=== PATIENT | male | born 1950 | race Caucasian/White ===

== ENCOUNTER → 2016-07-12 | Outpatient (CLI) | payer MEDICARE, BC, MEDICAID ==
[~2016-07-12] MED LIST: AMOXICILLIN875 MG PO; APRESOLINE 25MG25 MG PO; ATIVAN 1MG T1 MG/TAB PO; BYSTOLIC10 MG PO; CALCIUM 600-D 61 TAB PO; CELEXA10 MG PO; CEPHALEXIN500 M1 PO; COLACE 100100 MG/CAP PO; CORTEF 20MG TAB20 MG PO; DILAUDID 2MG TAB2 MG PO; ECHINACEA PURPU80 MG PO; FENTANYL 25 MCG TD; FENTANYL TD; FLEXERIL 1010 MG/TAB PO; FLOMAX 0.40.4 MG/CAP PO; KLOR-CON M2020 MEQ PO; LASIX 20MG TABL20 MG PO; MAALOX MAX + ANT1 ML PO; MEGA MULTIVITAM1 TAB PO; MIRALAX PA17 GM/Dose PO; NORCO 325 MG-51 TAB PO; NORVASC 10MG10 MG PO; PERCOCET 325 MG1 TA2 PO; PRAVACHOL10 MG PO; PRAVACHOL80 MG PO; REGLAN 10MG10 MG/TAB PO; STOOL SOFTENER100 M2 PO; SYNTHROID 0.0.025 MG PO; TYLENOL 500MG500 MG PO; ULTRAM 50MG TAB50 MG PO; UROXATRAL10 M1 PO; VASOTEC20 MG PO; VENTOLIN0.09 MG IH; XTANDI40 MG PO; ZESTRIL 5MG5 MG PO; ZITHROMAX TRI-500 MG PO; ZOFRAN 4MG T4 MG/TAB PO; [UNRECOGNIZED DRUG - OTHER] PO
== END ==
LOC: COL.RAD 09:05
DX: C61 Malignant neoplasm of prostate (principal); C79.51 Secondary malignant neoplasm of bone; R91.1 Solitary pulmonary nodule; K57.30 Diverticulosis of large intestine without perforation or abscess without bleeding; K40.90 Unilateral inguinal hernia, without obstruction or gangrene, not specified as recurrent
CPT/HCPCS: A9503

== ENCOUNTER → 2016-10-14 | Outpatient (CLI) | payer MEDICARE, BC, MEDICAID | LOC: COL.RAD 08:33 | DX: C61 Malignant neoplasm of prostate (principal); C79.51 Secondary malignant neoplasm of bone; R91.8 Other nonspecific abnormal finding of lung field; R59.0 Localized enlarged lymph nodes; K76.89 Other specified diseases of liver; N28.1 Cyst of kidney, acquired; K40.90 Unilateral inguinal hernia, without obstruction or gangrene, not specified as recurrent; S32.010A Wedge compression fracture of first lumbar vertebra, initial encounter for closed fracture; Z98.890 Other specified postprocedural states | CPT/HCPCS: A9503; Q9967 ==

== ENCOUNTER → 2017-01-16 | Outpatient (CLI) | payer MEDICARE, BC, MEDICAID ==
[~2017-01-16] MED LIST changes: -FENTANYL 25 MCG TD; +FENTANYL 50MCG TD
[2017-01-16 13:22] LABS: HEMATOCRIT 34.5 % (42.0-52.0); HEMOGLOBIN 10.9 g/dl (13.5-18.0); MEAN CELL VOLUME 92 fl (80.0-100.0); MEAN CORPUSCULAR HEMOGLOBIN 29 pg (27.0-31.0); MEAN CORPUSCULAR HGB CONC 32 g/dl (33.0-37.0); MEAN PLATELET VOLUME 10.6 fl (7.4-10.4); PLATELET COUNT 203 K/mm3 (130-400); RED BLOOD COUNT 3.74 M/mm3 (4.20-5.60)
[2017-01-16 13:23] LABS: ADD PATHOLOGY DIFF REVIEW NO
[2017-01-16 13:31] LABS: ADJUSTED CALCIUM 8.7 mg/dL (8.4-10.2); ALBUMIN 3.9 gm/dL (3.5-5.0); BILIRUBIN,TOTAL 1.1 mg/dL (0.0-1.0); CALCIUM 8.6 mg/dL (8.4-10.2); CREATININE, serum 0.77 mg/dL (0.66-1.25); POTASSIUM 4.4 mmol/L (3.4-5.0); TOTAL PROTEIN 6.8 gm/dL (6.4-8.2)
[2017-01-16 14:14] LABS: BAND 18 % (0-10); BASOPHIL 1 % (0-2); LYMPHOCYTE 10 % (20.0-51.0); METAMYELOCYTE 3 % (0-0); NEUTROPHILS 64 % (42.0-75.2); PLATELET ESTIMATE NORMAL (NORMAL); TOTAL CELLS COUNTED 100
[2017-01-16 14:15] LABS: ANISOCYTOSIS 1+; HYPOCHROMIA 1+; POLYCHROMASIA 1+
== END ==
LOC: COL.RAD 12:50
PROVIDERS: Emergency Medicine
DX: J90 Pleural effusion, not elsewhere classified (principal); I51.7 Cardiomegaly; R59.0 Localized enlarged lymph nodes; J84.9 Interstitial pulmonary disease, unspecified; I26.99 Other pulmonary embolism without acute cor pulmonale
CPT/HCPCS: Q9967

== ENCOUNTER 2017-01-30 22:11 | Inpatient (IN) | payer MEDICARE, BC, MEDICAID ==
[~2017-01-30] VITALS: Ht 175.3 cm; Wt 60.9 kg
[~2017-01-30 22:11] MED LIST changes: +ISORDIL 10MG10 MG PO
[2017-01-30] MEDS ORDERED: NITROSTAT0.4 MG/TAB SL (22:20)
[2017-01-30 22:34] LABS: HEMATOCRIT 37.1 % (42.0-52.0); MEAN CELL VOLUME 94 fl (80.0-100.0); MEAN CORPUSCULAR HEMOGLOBIN 29 pg (27.0-31.0); MEAN CORPUSCULAR HGB CONC 31 g/dl (33.0-37.0); MEAN PLATELET VOLUME 11.8 fl (7.4-10.4); PLATELET COUNT 207 K/mm3 (130-400); RED BLOOD COUNT 3.97 M/mm3 (4.20-5.60); WHITE BLOOD COUNT 16.1 K/mm3 (4.8-10.8)
[2017-01-30 22:36] LABS: HEMOGLOBIN 11.4 g/dl (13.5-18.0)
[2017-01-30 22:38] LABS: ADD PATHOLOGY DIFF REVIEW NO
[2017-01-30 22:44] LABS: ADJUSTED CALCIUM 9.5 mg/dL (8.4-10.2); ALBUMIN 3.6 gm/dL (3.5-5.0); BILIRUBIN,TOTAL 0.8 mg/dL (0.0-1.0); CALCIUM 9.2 mg/dL (8.4-10.2); CREATININE, serum 1.21 mg/dL (0.66-1.25); INR 1.3 (0.8-3.0); PROTHROMBIN TIME 14.9 SECONDS (9.7-12.8); TOTAL PROTEIN 6.4 gm/dL (6.4-8.2)
[2017-01-30 22:46] LABS: PARTIAL THROMBOPLASTIN TIME 31.9 SECONDS (26.0-37.0)
[2017-01-30 22:48] LABS: BAND 3 % (0-10); BASOPHIL 1 % (0-2); LYMPHOCYTE 15 % (20.0-51.0); METAMYELOCYTE 3 % (0-0); MYELOCYTE 2 % (0-0); NEUTROPHILS 70 % (42.0-75.2); NUCLEATED RED BLOOD CELL 3 (0-6); TOTAL CELLS COUNTED 100
[2017-01-30 22:49] LABS: ANISOCYTOSIS 1+; POIKILOCYTOSIS 1+; ROULEAUX 1+; TOXIC GRANULATION PRESENT
[2017-01-30 22:50] LABS: POLYCHROMASIA 2+; SCHISTOCYTES 1+; TARGET CELLS 1+
[2017-01-30 22:51] LABS: HELMET CELLS 1+; MICROCYTOSIS 1+; STOMATOCYTE 1+
[2017-01-30 22:57] LABS: TROPONIN-I 0.648 ng/mL (0.000-0.034)
[2017-01-31 05:14] VITALS: BP 142/50; PULSE 77; TEMP 98.2
[2017-01-31 07:30] VITALS: BP 126/42; PULSE 79; TEMP 98.4
[2017-01-31 10:50] VITALS: BP 122/38; PULSE 75; TEMP 98.1
[2017-01-31 15:58] VITALS: BP 128/42; PULSE 71; TEMP 97.9
[2017-01-31 21:23] VITALS: BP 121/36; PULSE 72; TEMP 97.4
[2017-02-01] VITALS (7 sets, daily range): BP systolic 113–135; BP diastolic 32–53; PULSE 53–77; TEMP 97.4–98.5
[2017-02-01 17:51] LABS: CK total - for Isoenzymes 465 U/L (52 - 336)
[2017-02-02 02:55] VITALS: BP 115/36; PULSE 72; TEMP 97.5
[2017-02-02 07:47] VITALS: BP 125/47; PULSE 79; TEMP 97.6
[2017-02-02 11:16] VITALS: BP 120/34; PULSE 79; TEMP 97.5
[2017-02-02 15:54] VITALS: BP 117/30; PULSE 74; TEMP 97.9
[2017-02-02 20:50] VITALS: BP 123/34; PULSE 70; TEMP 97.8
[2017-02-02 23:20] VITALS: BP 116/46; PULSE 78; TEMP 97.9
[2017-02-03 05:11] VITALS: BP 117/38; PULSE 69; TEMP 97.6
[2017-02-03 07:49] VITALS: BP 109/34; PULSE 66; TEMP 97.4
[2017-02-03 09:38] LABS: ADD PATHOLOGY DIFF REVIEW NO
[2017-02-03 09:48] LABS: HEMATOCRIT 29.1 % (42.0-52.0); MEAN CELL VOLUME 93 fl (80.0-100.0); MEAN CORPUSCULAR HEMOGLOBIN 29 pg (27.0-31.0); MEAN CORPUSCULAR HGB CONC 31 g/dl (33.0-37.0); MEAN PLATELET VOLUME 12.4 fl (7.4-10.4); PLATELET COUNT 121 K/mm3 (130-400); RED BLOOD COUNT 3.13 M/mm3 (4.20-5.60); WHITE BLOOD COUNT 9.7 K/mm3 (4.8-10.8)
[2017-02-03 10:14] LABS: TROPONIN-I 5.56 ng/mL (0.000-0.034)
[2017-02-03 10:25] LABS: C-REACTIVE PROTEIN 19.6 mg/dL (0.0-0.9)
[2017-02-03 10:37] LABS: BAND 12 % (0-10); BASOPHIL 1 % (0-2); LYMPHOCYTE 12 % (20.0-51.0); NEUTROPHILS 67 % (42.0-75.2); PLATELET ESTIMATE NORMAL (NORMAL); TOTAL CELLS COUNTED 100
[2017-02-03 10:38] LABS: ANISOCYTOSIS 1+; HYPOCHROMIA 2+; OVALOCYTES 1+; POIKILOCYTOSIS 1+
[2017-02-03 11:32] VITALS: BP 123/32; PULSE 80; TEMP 98.4
[2017-02-03 15:13] VITALS: BP 123/32; PULSE 80; TEMP 98.4
[2017-02-03] MEDS ORDERED: LANOXIN 0.25M0.25 MG PO (15:36)
[2017-02-03] MEDS ORDERED: FENTANYL 75MCG TD (15:41)
== END 2017-02-03 16:04 | DRG 292 ==
LOC: COL.ER 22:11 → MEDICAL 23:21
PROVIDERS: Emergency Medicine
DX: I11.0 Hypertensive heart disease with heart failure (principal); C79.51 Secondary malignant neoplasm of bone; I50.23 Acute on chronic systolic (congestive) heart failure; I42.0 Dilated cardiomyopathy; I27.22 Pulmonary hypertension due to left heart disease; I08.3 Combined rheumatic disorders of mitral, aortic and tricuspid valves; C61 Malignant neoplasm of prostate
CPT/HCPCS: G0103; G0378; J1940; J2060; J2270

== ENCOUNTER → 2017-02-28 | Outpatient (REF) ==
[~2017-02-28] MED LIST changes: +FENTANYL 75MCG TD; +LANOXIN 0.25M0.25 MG PO; +NITROSTAT0.4 MG/TAB SL
[2017-02-28 09:40] LABS: ALBUMIN 3.5 gm/dL (3.5-5.0); BILIRUBIN,TOTAL 0.7 mg/dL (0.0-1.0); CALCIUM 7.4 mg/dL (8.4-10.2); CREATININE, serum 0.64 mg/dL (0.66-1.25); POTASSIUM 5.4 mmol/L (3.4-5.0); TOTAL PROTEIN 6.1 gm/dL (6.4-8.2)
== END ==
LOC: ZLAB.STJ 09:25
PROVIDERS: Emergency Medicine
DX: Z01.89 Encounter for other specified special examinations (principal)
CPT/HCPCS: G0103

== ENCOUNTER → 2017-03-20 | Outpatient (CLI) | payer MEDICARE, BC, MEDICAID ==
[2017-03-20 14:50] LABS: MEAN CELL VOLUME 99 fl (80.0-100.0); MEAN CORPUSCULAR HGB CONC 30 g/dl (33.0-37.0); MEAN PLATELET VOLUME 11.1 fl (7.4-10.4); PLATELET COUNT 237 K/mm3 (130-400); RED BLOOD COUNT 3.34 M/mm3 (4.20-5.60); REDCELL DISTRIBUTION WIDTH-CV 20.7 % (11.5-14.5)
[2017-03-20 14:52] LABS: HEMATOCRIT 32.9 % (42.0-52.0); HEMOGLOBIN 9.8 g/dl (13.5-18.0); MEAN CORPUSCULAR HEMOGLOBIN 29 pg (27.0-31.0)
[2017-03-20 15:04] LABS: ALBUMIN 3.4 gm/dL (3.5-5.0); BAND 12 % (0-10); BILIRUBIN,TOTAL 0.4 mg/dL (0.0-1.0); CALCIUM 8.5 mg/dL (8.4-10.2); CREATININE, serum 0.85 mg/dL (0.66-1.25); EOSINOPHIL 1 % (0-4); HYPOCHROMIA 2+; LYMPHOCYTE 13 % (20.0-51.0); METAMYELOCYTE 1 % (0-0); MYELOCYTE 2 % (0-0); NEUTROPHILS 65 % (42.0-75.2); PLATELET ESTIMATE NORMAL (NORMAL); POTASSIUM 5.6 mmol/L (3.4-5.0); TOTAL PROTEIN 6.4 gm/dL (6.4-8.2)
[2017-03-20 15:05] LABS: ANISOCYTOSIS 1+
[2017-03-20 15:46] LABS: TROPONIN-I 0.047 ng/mL (0.000-0.034)
== END ==
LOC: ZLAB.STJ 14:16
PROVIDERS: Emergency Medicine
DX: Z01.89 Encounter for other specified special examinations (principal)
CPT/HCPCS: G0103